=== PATIENT | male | born 1945 | race Caucasian/White ===

== ENCOUNTER 2016-07-04 21:56 | Emergency (ER) | payer MEDICARE | END 2016-07-04 23:32 | disposition home or self-care (01) | LOC: ER 21:56 | DX: K29.00 Acute gastritis without bleeding (principal); E86.0 Dehydration; R53.1 Weakness; E87.6 Hypokalemia; I10 Essential (primary) hypertension; Z87.891 Personal history of nicotine dependence | CPT/HCPCS: 36415; 96361; 96374 ==